=== PATIENT | female | born 1935 | race Hispanic/Latino ===

== ENCOUNTER 2023-12-17 07:14 | Day surgery (SDC) | payer OTHER ==
[~2023-12-17] VITALS: Ht 144.8 cm; Wt 66.2 kg
[2023-12-17] VITALS (10 sets, daily range): BP systolic 104–159; BP diastolic 49–79; PULSE 55–78; RESP 15–18; TEMP 97.1–97.9
[2023-12-17] MEDS ORDERED: OMEG100014 PO (09:48)
[2023-12-17] MEDS ORDERED: FLUT1BLS15 IH (09:48)
[2023-12-17] MEDS ORDERED: FAMO40TA7 PO (09:48)
[2023-12-17] MEDS ORDERED: PRED5TAB PO (09:48)
[2023-12-17] MEDS ORDERED: ESCI-8 PO (09:48)
[2023-12-17] MEDS ORDERED: PRAV40TA3 PO (09:48)
[2023-12-17] MEDS ORDERED: ATEN25TA PO (09:48)
[2023-12-17] MEDS ORDERED: BUSP10TA3 PO (09:48)
[2023-12-17] MEDS ORDERED: CHOL500062 PO (09:48)
[2023-12-17] MEDS ORDERED: OLME40TA18 PO (09:48)
[2023-12-17] MEDS ORDERED: LEFL20TA22 PO (09:48)
[2023-12-17] MEDS ORDERED: LEVO50CA4 PO (09:48)
[2023-12-17] MEDS ORDERED: proPOFol 10 MG/ML 20ML VIAL IV ONE (09:50)
[2023-12-17] MEDS: 0.9%NACL 1000ML 1,000 ML IV ONE (09:55)
== END 2023-12-17 11:06 | disposition home or self-care (01) ==
LOC: DAH 07:14
PROVIDERS: ATTEND Internal Medicine Gastroenterology
DX: K92.1 Melena (principal); K29.50 Unspecified chronic gastritis without bleeding; K31.89 Other diseases of stomach and duodenum; R10.12 Left upper quadrant pain; K21.9 Gastro-esophageal reflux disease without esophagitis; K44.9 Diaphragmatic hernia without obstruction or gangrene; I10 Essential (primary) hypertension; K57.90 Diverticulosis of intestine, part unspecified, without perforation or abscess without bleeding; D50.9 Iron deficiency anemia, unspecified; F41.9 Anxiety disorder, unspecified; E78.00 Pure hypercholesterolemia, unspecified; E05.90 Thyrotoxicosis, unspecified without thyrotoxic crisis or storm; M19.90 Unspecified osteoarthritis, unspecified site; Z98.890 Other specified postprocedural states; Z98.41 Cataract extraction status, right eye; Z79.899 Other long term (current) drug therapy
CPT/HCPCS: 43239; J7030 ×2; J2704; A4620; A4215 ×2; A4223; A4657; A4222; A4221; A4663; A4606; J3490